=== PATIENT | male | born 1950 | race Caucasian/White ===

== ENCOUNTER → 2017-02-27 | Outpatient (CLI) | payer BC, MEDICARE ==
[~2017-02-27] MED LIST: ATORVASTATIN CA40 MG PO; COREG25 MG PO; DEXILANT30 MG PO; HYGROTON25 MG PO; IMODIUM2 MG PO; LASIX20 MG PO; NORVASC5 MG PO; PEPCID20 MG PO; ULORIC40 MG PO; ZESTRIL40 MG PO; ZOFRAN ODT4 MG SL
== END | disposition disaster alternative care site (69) ==
LOC: GRAD 08:30
DX: N18.9 Chronic kidney disease, unspecified (principal); I67.4 Hypertensive encephalopathy; I61.9 Nontraumatic intracerebral hemorrhage, unspecified; I71.4 Abdominal aortic aneurysm, without rupture; Z87.891 Personal history of nicotine dependence

== ENCOUNTER 2017-03-08 14:09 | Inpatient (IN) | payer BC, MEDICARE ==
[~2017-03-08] VITALS: Ht 175.3 cm; Wt 74.0 kg
--- NOTE | ~2017-03-08 | DS ---
PATIENT'S NAME: FRANKIE ROWELL [facility] AGE: 66 Y [address] ROOM: [place] [address] LOCATION: GI ADMIT DATE: 03/08/2017 Discharge Summary DISCHARGE DATE: 03/09/2017 FAMILY PHYSICIAN: Physician, Unknown ATTENDING PHYSICIAN: Becky Lovett PRINCIPAL DIAGNOSES: 1. Hypertensive emergency. 2. Nausea, vomiting, intractable. 3. History of hemorrhagic stroke. 4. Chronic kidney disease, stage 3. BRIEF HOSPITAL COURSE: This is a 66-year-old male who presented with xllumqtya-bp-kovsyms hypertension and recent hemorrhagic stroke who came in with complaints of generalized fatigue, dizziness, headache, nausea, vomiting, unable to take his medications for the past 2-3 days due to this. The patient on presentation had a blood pressure of 203/103 and was admitted for hypertensive emergency on a nitro drip to control his blood pressure. The patient's blood pressure quickly improved with the nitro drip and this was switched off overnight. The patient's blood pressure during his hospital stay maintained in the systolic of 120s. At this point, we will resume the patient's home medications and given him detailed instructions on when to take his medications and how to take the blood pressure and for symptoms to look for high or low blood pressure. The patient was also seen by Dr. Parr from Nephrology and is well-known to him and he will follow up as outpatient as well. PHYSICAL EXAMINATION: GENERAL: The patient is awake, alert, and oriented x3 in no apparent distress. HEART: S1, S2. Regular rate and rhythm. ABDOMEN: Soft, nontender, nondistended. EXTREMITIES: Without edema noted. NEUROLOGICAL: Exam with no focal deficits. MEDICATIONS: Per DEC. DISPOSITION: Home and will follow up with Dr. Parr from Nephrology. Less than 30 minutes were spent in discharge planning. BECKY LOVETT MD PATIENT'S NAME: FRANKIE ROWELL [facility] AGE: 66 Y [address] ROOM: [place] [address] LOCATION: GICU ADMIT DATE: 03/08/2017 Discharge Summary DISCHARGE DATE: 03/09/2017 FAMILY PHYSICIAN: Physician, Daija ATTENDING PHYSICIAN: Becky Lovett /[id number] d: 03/10/17 0313 t: 03/30/17 1525, DISCHARGE SUMMARY
--- NOTE | ~2017-03-08 | HP ---
PATIENT'S NAME: FRANKIE ROWELL [facility] AGE: 66 Y [address] ROOM: [place] [address] LOCATION: [facility] ADMIT DATE: 03/08/2017 History & Physical DISCHARGE DATE: FAMILY PHYSICIAN: PHYSICIAN, UNKNOWN ATTENDING PHYSICIAN: BECKY LEWIS DATE OF SERVICE: CHIEF COMPLAINT: Hypertensive emergency, nausea, vomiting. HISTORY OF PRESENT ILLNESS: This is a 66-year-old male with history of wlxekwpse-yf-tkkheqb hypertension and hemorrhagic stroke from hypertensive crisis a month ago, presents with two days' history of nausea, vomiting, and subsequently unable to take his blood pressure medications. The patient was found to have blood pressure of over 200/110 at presentation. The patient complains of some headache as well as persistent nausea and vomiting. Describes vomiting as bilious. The patient overall has not been able to keep p.o. intake well for the past 2+ days. The patient denies any diarrhea or any sick contact or recent antibiotic use. Describes some subjective fever. Otherwise, denies any chest pain, shortness of breath, dizziness, or lightheadedness. Also, denies abdominal pain. PAST MEDICAL HISTORY: Hemorrhagic stroke, hypertension. SOCIAL HISTORY: History of smoking, stopped in October. Denies any alcohol or drug use. FAMILY HISTORY: The patient denies any family history of hypertension, heart disease, cancer, or diabetes. REVIEW OF SYSTEMS: All systems have been reviewed and were negative except as described in the HPI. PHYSICAL EXAMINATION: VITAL SIGNS: Blood pressure 205/103, pulse 83, respiratory rate 19, saturating 99% on room air. GENERAL: The patient awake, alert, and oriented, however, lethargic. HEENT: Moist mucous membranes. No scleral icterus. Conjunctival pallor noted. SKIN: Without rash or lesions. CHEST: Clear to auscultation bilaterally. PATIENT'S NAME: FRANKIE ROWELL [facility] AGE: 66 Y [address] ROOM: [place] [address] LOCATION: [facility] ADMIT DATE: 03/08/2017 History & Physical DISCHARGE DATE: FAMILY PHYSICIAN: PHYSICIAN, UNKNOWN ATTENDING PHYSICIAN: BECKY LEWIS HEART: S1, S2. Regular rate and rhythm. ABDOMEN: Soft, nontender, nondistended with good bowel sounds. MUSCULOSKELETAL: No joint pain, effusion, or redness noted. NEUROLOGIC: Grossly nonfocal. ASSESSMENT AND PLAN: 1. Hypertensive emergency. Noting the patient does have a recent history of hemorrhagic stroke, we will admit him to PCU and we will use nitroglycerin drip to control blood pressure better. Blood pressure at presentation was 205/103. We will aim for a blood pressure of around systolic of 160 in the next 12 to 24 hours. We will use nitroglycerin drip and continue all of his home medications. 2. Nausea and vomiting, intractable. No alarming features on exam, however. We will continue supportive care and advance his diet as tolerated. CT scan of the head was negative. 3. History of hemorrhagic stroke. We will continue with managing his blood pressure as above. 4. Deep venous thrombosis prophylaxis. We will use SCDs and ambulation. MD CASSANDRA ADAME/milady /[id number] D: T: 522 HISTORY & PHYSICAL
--- NOTE | ~2017-03-08 | ER ---
PATIENT'S NAME: FRANKIE ROWELL [facility] AGE: 66 Y [address] ROOM: [place] [address] LOCATION: GICU ADMIT DATE: 03/08/2017 ER/Outpatient Report DISCHARGE DATE: FAMILY PHYSICIAN: PHYSICIAN, UNKNOWN ATTENDING PHYSICIAN: BECKY LOVETT Time of Arrival: 1409 hours. Time Seen: 1418 hours. IDENTIFICATION: 66-year-old male. CHIEF COMPLAINT: Vomiting. HISTORY OF PRESENT ILLNESS: The patient is a 66-year-old male who began vomiting 7 hours prior to arrival at 6 a.m. this morning. He has some epigastric abdominal discomfort as well. His pertinent past medical history is such that he was admitted to the hospital in [place] on February 12 with a hemorrhagic stroke, released on February 20, no residual from that. He has had some acute kidney injury and has been seeing Dr. Parr, and some hypertension that has been difficult to control. The patient has no ill contacts, here with this recent vomiting. He has had no diarrhea. He has been on some prednisone, but they held that on Thursday, that was for tendinitis of his elbow. No blood in his stools. No dark, tarry, or black stools. PAST MEDICAL HISTORY: ALLERGIES: NO KNOWN DRUG ALLERGIES. CURRENT MEDICATIONS: 1. Lisinopril 40 mg daily. 2. Dexilant 60 mg daily. 3. Lasix 40 mg daily. 4. Carvedilol 25 mg b.i.d. 5. Atorvastatin 40 mg at h.s. 6. Uloric 40 mg daily. 7. Amlodipine 10 mg at bedtime. MEDICAL PROBLEMS: Hypertension, hemorrhagic CVA, acute kidney injury, gastroesophageal reflux disease, hyperlipidemia, and hyperuricemia. PATIENT'S NAME: FRANKIE ROWELL [facility] AGE: 66 Y [address] ROOM: [place] [address] LOCATION: [facility] ADMIT DATE: 03/08/2017 ER/Outpatient Report DISCHARGE DATE: FAMILY PHYSICIAN: PHYSICIAN, UNKNOWN ATTENDING PHYSICIAN: BECKY LOVETT PRIOR SURGERIES: Appendectomy, tonsillectomy, and hernia repair. SOCIAL HISTORY: The patient lives in [place]. Works as a sanitation truck driver. He does have a significant other. Tobacco use, he has smoked in the past, quit in October of 2015, 50+ pack year history. Alcohol use, denies. Drug use, denies. REVIEW OF SYSTEMS: All systems reviewed and negative other than what is noted in the HPI. FAMILY HISTORY: No pertinent family history identified. REVIEW OF SYSTEMS: the patient has had him hiccups with this. The patient specifically denies headache. No numbness, tingling, or weakness. He denies chest pain. PHYSICAL EXAMINATION: VITAL SIGNS: Height 5 feet 9 inches, weight 82.9 kg, blood pressure 205/103, temperature 97.6, pulse 83, respirations 19, and saturations 99%. GENERAL: A 66-year-old male, in obvious distress. HEENT: Head: Normocephalic, atraumatic. Ears: TMs not visualized. Eyes: Pupils equal and reactive to light and accommodation. Extraocular movements intact. Nose: Mucosa pink. No lesions. Mouth: No lesions. Pharynx benign. NECK: Supple. No lymphadenopathy. No nuchal rigidity. LUNGS: Clear to auscultation. Breath sounds are equal. No rhonchi, wheezes, or rales. HEART: Regular rate and rhythm. No murmur, rub, or gallop. ABDOMEN: Bowel sounds present. Soft, nondistended. No hepatosplenomegaly. No palpable masses. Some mild epigastric tenderness. No rebound or guarding. SKIN: [place], warm, and dry. No lesions or rashes noted. NEURO: The patient is alert and oriented x4. Cranial nerves 2 through 12 grossly intact. Motor strength 5/5 throughout. Sensation is intact to light touch. EXTREMITIES: No lower extremity edema. No calf tenderness. EMERGENCY ROOM COURSE: An IV normal saline at 75 mL/h was initiated. Zofran 4 mg IV for nausea. Hemoglobin 15.9, hematocrit 45.6, platelets 351, and white count 10.3 with normal differential. INR 1.06. Sodium 136, potassium 3.9, chloride 100, CO2 of 22, BUN 46, creatinine elevated at 2.0 which is significant. Other studies are stable for him. Blood sugar 151. Liver enzymes normal. Magnesium 2. CPK 69, CK-MB 0.8, and troponin I less than 0.040. Chest x-ray, 1 view, no [facility] 66 [facility] [address] ROOM: [address] [address] LOCATION: [facility] ADMIT DATE: 03/08/2017 ER/Outpatient Report DISCHARGE DATE: FAMILY PHYSICIAN: PHYSICIAN, UNKNOWN ATTENDING PHYSICIAN: BECKY LOVETT acute process, pending Radiology over-read. EKG: Normal sinus rhythm at 78 beats per minute. No acute ST elevation or depression. Head CT per Dr. Wang: Ill-defined low attenuation involving lam and white matter of the posterior right parietooccipital region measuring up to 3.7 cm. This is in the area where his significant other says is prior hemorrhagic stroke was. UA: Trace of protein, otherwise negative. The patient was given Zofran for nausea, fentanyl for pain. No improvement of his blood pressure. His GI cocktail helped with his epigastric discomfort. The patient has continued to have hiccups. He was given his oral dose of lisinopril 40 mg after his nausea improved, labetalol 10 mg IV over 2 minutes with minimal improvement in his blood pressure, amlodipine 10 mg p.o. x1. Again, persistent elevation of his blood pressure, so then he was given another dose of IV labetalol. IMPRESSION AND PLAN: 1. Hypertensive emergency. Plan for admission per Dr. Lovett who did evaluate him here in the emergency room. 2. Epigastric pain, improved. 3. Prior hemorrhagic cerebrovascular accident with ill-defined area on the head CT today. LATOYA LEWIS MD CAR/modl /[id number] d: 03/08/172236 t: 03/11/17 0642, OUTPATIENT REPORT
--- NOTE | ~2017-03-08 | CON ---
PATIENT'S NAME: FRANKIE ROWELL [facility] AGE: 66 Y [address] ROOM: [address] [place], [place] [address] LOCATION: GICU ADMIT DATE: 03/08/2017 Consultation DISCHARGE DATE: 03/09/2017 FAMILY PHYSICIAN: Physician, Unknown ATTENDING PHYSICIAN: Mike Lovett HISTORY OF PRESENT ILLNESS: A 66-year-old male with a history of recently diagnosed hypertension, CKD, stage 3, after development of hemorrhagic CVA and recent admission in [facility] in [place] presented to [facility] with intractable nausea, vomiting, and poor oral intake along with hypertensive urgency. The patient was seen in my clinic and also by Dr. Paige at [facility] over the last few weeks. As explained above, the patient has had no significant past medical history in the past, but noted to develop an intraparenchymal hemorrhage for which the patient went into respiratory failure, got intubated, and had a prolonged hospital course at [place], [place]; following which, he is noted to have difficult to control hypertension and significant renal insufficiency. However, we were able to control the blood pressure adequately with 3-4 blood pressure pills and the patient was doing significantly well with significant improvement of kidney function over the last few weeks, but more recently, the patient had developed some bursitis over the right olecranon process and the patient was started on steroids for that. Following initiation of the steroids, the patient was complaining of significant upper epigastric discomfort after which he had intractable nausea with inability to keep anything down. The patient was not taking oral antihypertensive medication because of significant nausea and came to Dr. Paige's clinic on Thursday with significantly elevated blood pressure and poor oral intake. The patient got a liter of normal saline bolus at that time, got also Zofran and some IV antacid suppression medication following which the patient's symptoms were improved significantly; however, within next couple of days, the patient again showed up in the ER with similar complaint with blood pressure in more than 200. The patient was subsequently started on nitroglycerin IV infusion and blood pressure today is well-controlled. The home blood pressure medication was on hold while the patient was on IV antibiotics medication and currently we are going back on home antihypertensive regimen. REVIEW OF SYSTEMS: GENERAL: No fever. No chills or rigor. HEENT: No sore throat. No sinus congestion. CVS: No chest pain. No exertional shortness of breath. No leg swelling. RESPIRATORY: No shortness of breath. No cough. No wheezing. GENITOURINARY: No pain with urination. No increased frequency. No nocturia. GASTROINTESTINAL: No abdominal pain. No abdominal distention. No nausea or vomiting. NEUROLOGIC: No weakness. No seizures. SKIN: No rash. No itching. ALLERGIES: No seasonal allergy. No hayfever. ENDOCRINE: No heat intolerance. No cold intolerance. PSYCHIATRIC: No sadness. No crying spells. No history of panic attack. PAST MEDICAL HISTORY: 1. Newly diagnosed hypertension. 2. Chronic kidney disease, stage 3. 3. History of acute hypoxic respiratory failure. 4. Acute encephalopathy. 5. History of urinary tract infection.PATIENT'S NAME: FRANKIE ROWELL [facility] AGE: 66 Y [address] ROOM: [place] [address] LOCATION: [facility] ADMIT DATE: 03/08/2017 Consultation DISCHARGE DATE: 03/09/2017 FAMILY PHYSICIAN: Physician, Unknown ATTENDING PHYSICIAN: Mike Lovett PAST SURGICAL HISTORY: 1. History of appendectomy. 2. History of hernia repair. 3. Tonsillectomy with adenoidectomy. FAMILY HISTORY: Father had a history of pneumonia. SOCIAL HISTORY: Former heavy tobacco smoker and about 42-[id number]-yfzv history of smoking. Occasional alcohol use. Single, . PHYSICAL EXAMINATION: VITAL SIGNS: Blood pressure 106/55, pulse 66, respiratory rate 18, temperature 98.1, and saturation 96% to 98% on room air. GENERAL: Not in apparent distress. HEAD: Moist mucous membranes. Bilateral PERRLA, EOMI. NECK: No JVD, thyromegaly or lymphadenopathy. CVS: S1 and S2 normal, regular rate and rhythm. No murmur, rub, gallop. CHEST: Bilateral air entry equal. No wheeze or rales. ABDOMEN: Soft, nontender, nondistended. Bowel sounds present. EXTREMITIES: No cyanosis, clubbing, jaundice. No dependent edema. MUSCULOSKELETAL: No limitation of range of motion. SKIN: No pallor, cyanosis, icterus. MOTOR ROOM CONTROLLER: Alert and oriented x3. No gross findings. LABORATORY STUDIES: Troponin less than 0.040, CPK 69. CBC: Hemoglobin 15.9, WBC 10.3, and platelet 351. Chemistry: Sodium 136, potassium 3.9, chloride 100, bicarbonate 22, BUN 46, creatinine 2, glucose 151, calcium 9.1, total protein 7.6, albumin 3.7, AST 15, ALT 26, alk phos 70, total bilirubin 0.7, magnesium 2. INR 1.6. UA specific gravity 1.005, pH 7, negative for LE, negative for nitrate, 1+ proteinuria, 1+ glucose, negative ketone, negative urobilinogen, 0- 2 wbc, 5-10 rbc, 1+ blood, few bacteria. Urine protein creatinine ratio 0.1. ASSESSMENT AND PLAN: 1. Hypertensive urgency with recent history of hypertensive encephalopathy with intraparenchymal hemorrhage. The patient's blood pressure was adequately controlled on four antihypertensive medication, but for the last few days, the patient was not able to keep anything down with significant nausea and vomiting. Steroid has been discontinued, but still has significant nausea. We would recommend intravenous proton pump inhibitor and intravenous Zofran for now and maybe discharge the patient on a proton pump inhibitor and Zofran for symptom control. The patient also has been explained about the need to control the blood pressure in the strict zone as significant fluctuation of the blood pressure can impact the kidney function as well. 2. Chronic kidney disease, stage 3. Renal function is within the normal range. Creatinine is currently 2, which is probably his baseline. Protein creatinine ratio is 0.1, has history of mild hypertensive nephrosclerosis, we will continue current antihypertensive medication including GURWINDER inhibitor, which will also help in renal protection. PATIENT'S NAME: FRANKIE ROWELL [facility] AGE: 66 Y [address] ROOM: [place] [address] LOCATION: [facility] ADMIT DATE: 03/08/2017 Consultation DISCHARGE DATE: 03/09/2017 FAMILY PHYSICIAN: Physician, Unknown ATTENDING PHYSICIAN: Mike Lovett 3. Significant gastritis, possibly secondary to a side effect of steroid, which was initiated for uremic bursitis, currently is off steroid, we will recommend proton pump inhibitor and Zofran as mentioned above, and the patient can be discharged on those 2 medications for symptom control. 4. Hyperuricemia with possible uremic bursitis. The patient currently on Uloric. We will continue the same. The patient do not need any systemic steroids at this point. We may use intralesional steroid injection if symptoms recurs in the future. Thank you for allowing me to participate in this patient's care. We will closely monitor the patient's progress along with you. OLY JOLLY MD /modl /[id number] d: 03/09/17 2349 t: 03/19/17 1614, CONSULTATION REPORT
[2017-03-08 14:55] LABS: BASOPHIL % 0.2 %; EOSINOPHIL % 0.1 %; HEMATOCRIT 45.6 % (37.0-53.0); HEMOGLOBIN 15.9 g/dL (11.0-16.0); IMMATURE GRANULOCYTE # 0.1 K/uL (0.0-0.3); IMMATURE GRANULOCYTE % 0.7 %; LYMPHOCYTE # 1.4 K/uL (0.8-4.0); LYMPHOCYTE % 13.2 %; MCH 30.1 pg (27.0-34.0); MCHC 34.9 gm/dL (32.0-36.5); MCV 86.2 fl (83.0-98.0); MONOCYTE # 0.8 K/uL (0.0-1.0); MONOCYTE % 7.6 %; MPV 9.6 fl (9.4-12.4); NEUTROPHIL # (ANC) 8.1 K/uL (1.4-9.0); NEUTROPHIL % 78.2 %; NRBC % 0 /100WBC (0-0.00); PLATELET COUNT 351 K/uL (150-450); RBC 5.29 M/uL (3.50-5.50); RDW-CV 11.8 % (11.9-14.6); WBC 10.3 K/uL (4.0-11.0)
[2017-03-08 15:03] LABS: INR - (THERAPEUTIC) 1.06 (0.92-1.07); PROTIME 11.1 SECONDS (9.8-11.4); PTT 26 SECONDS (25-32)
[2017-03-08 15:13] LABS: ALBUMIN 3.7 gm/dL (3.5-5.0); ALK PHOS 70 IU/L (33-138); ALT 26 IU/L (12-78); ANION GAP 17.9 (10.0-19.0); AST 15 IU/L (10-40); BLOOD UREA NITROGEN 46 mg/dL (6-24); CALCIUM 9.1 mg/dL (8.5-10.5); CHLORIDE 100 mMol/L (96-110); CO2 22 mMol/L (22-32); CPK 69 IU/L (35-332); ESTIMATED GFR (MDRD EQUATION) 33; POTASSIUM 3.9 mMol/L (3.7-5.1); SODIUM 136 mMol/L (135-145); TOTAL BILIRUBIN 0.7 mg/dL (0.0-1.5); TOTAL PROTEIN 7.6 g/dL (6.0-8.4)
[2017-03-08 16:47] LABS: BILIRUBIN URINE NEGATIVE (NEGATIVE); BLOOD URINE 25 /UL (NEGATIVE); COLOR URINE YELLOW (YELLOW); GLUCOSE URINE 100 mg/dL (NEGATIVE); KETONE URINE NEGATIVE (NEGATIVE); LEUKOCYTES URINE NEGATIVE /UL (NEGATIVE); NITRITE URINE NEGATIVE (NEGATIVE); PROTEIN URINE 30 mg/dL (NEGATIVE); SPEC GRAVITY URINE 1.005 (1.003-1.035); TURBIDITY URINE CLEAR (CLEAR); UROBILINOGEN URINE NORMAL (NORMAL)
[2017-03-08 17:00] LABS: BACTERIA URINE FEW (NEGATIVE); EPITHELIAL URINE 0-2 #/HPF (NEGATIVE); WBC URINE 0-2 #/HPF (NEGATIVE)
--- NOTE | 2017-03-08 20:00 | NUR ---
Patient has not been feeling well since . Nausea and vomiting night, to clinic thursday and recieved fluids, sent home. Anderson ok on Thursday until evening. Woke up Thursday morning vomiting and unable to keep medications down. To [facility] ER, pressures 200/100s. Nitro drip started in ER. Admitted as PCU status.
[2017-03-08] MEDS ORDERED: ZESTRIL40 MG PO (20:07)
[2017-03-08] MEDS ORDERED: LASIX20 MG PO (20:08)
[2017-03-08] MEDS ORDERED: NORVASC5 MG PO (20:08)
[2017-03-08] MEDS ORDERED: ULORIC40 MG PO (20:09)
[2017-03-08] MEDS ORDERED: COREG25 MG PO (20:09)
[2017-03-08] MEDS ORDERED: ATORVASTATIN CA40 MG PO (20:10)
[2017-03-08] MEDS ORDERED: DEXILANT30 MG PO (20:11)
--- NOTE | 2017-03-09 05:00 | NUR ---
Significant Event: Patient alert and oriented. Up with standby assist. No nausea or vomiting since arrival to ICU. Denies pain. Nitro drip off at 2100. SBP 120-140/60-70s. Heart rates 60-70s. Pleasant and cooperative with cares. Follow up: continue to monitor
--- NOTE | 2017-03-09 11:01 | NUR ---
Introduced self and care management services to patient and girlfriend at bedside. Lives in [place], feels much better and hoping to go home today. Independent, denies concerns about going home on discharge, denies needs. Will follow.
[2017-03-09] MEDS ORDERED: ZOFRAN ODT4 MG SL (15:40)
[2017-06-24] MEDS ORDERED: PEPCID20 MG PO (08:14)
[2017-06-24] MEDS ORDERED: IMODIUM2 MG PO (08:16)
== END 2017-03-09 16:18 | disposition disaster alternative care site (69) | DRG 305 ==
LOC: GMED 14:09 → GICU 19:05
PROVIDERS: Family Medicine; ADMIT Internal Medicine
DX: I16.1 Hypertensive emergency (principal); N17.9 Acute kidney failure, unspecified; K21.9 Gastro-esophageal reflux disease without esophagitis; E78.5 Hyperlipidemia, unspecified; T38.0X5A Adverse effect of glucocorticoids and synthetic analogues, initial encounter; K29.70 Gastritis, unspecified, without bleeding; E79.0 Hyperuricemia without signs of inflammatory arthritis and tophaceous disease; R10.13 Epigastric pain; N18.3 Chronic kidney disease, stage 3 (moderate); I12.9 Hypertensive chronic kidney disease with stage 1 through stage 4 chronic kidney disease, or unspecified chronic kidney disease; M71.9 Bursopathy, unspecified; Z86.73 Personal history of transient ischemic attack (TIA), and cerebral infarction without residual deficits; Z87.891 Personal history of nicotine dependence
CPT/HCPCS: J2405; J3010; J7030

== ENCOUNTER 2017-03-30 21:10 | Inpatient (IN) | payer BC, MEDICARE ==
[~2017-03-30] VITALS: Ht 180.3 cm; Wt 85.5 kg
--- NOTE | ~2017-03-30 | HP ---
PATIENT'S NAME: FRANKIE ROWELL [facility] AGE: 66 Y [address] ROOM: [id number] [place], [place] [address] LOCATION: GPCU ADMIT DATE: 03/30/2017 History & Physical DISCHARGE DATE: FAMILY PHYSICIAN: EFRAÍN RANDALL MD ATTENDING PHYSICIAN: MARY LUNA DATE OF SERVICE: CHIEF COMPLAINT: Infraumbilical abdominal pain associated with nausea, vomiting, and loose stools. HISTORY OF PRESENT ILLNESS: This is a 66-year-old male who says that he was recently taking prednisone for his right elbow bursitis and made him feel very sick to the stomach causing nausea and vomiting and some epigastric pain. Prednisone was recently discontinued. He was on prednisone on March 04, 2017, to March 05, 2017, and on March 06, 2017, it was stopped because of the GI upset. The story is that roughly 2 weeks ago, he had epigastric pain with radiation to the back, lasted for 3 days, intensity about 4/10, come and go, feels like a crampy type of pain and he took Tylenol and the pain totally went away after 3 days. However, for the last 5 days, his abdominal pain recurred, but at this time the abdominal pain is in the infraumbilical area and about 4/10 in intensity on and off, also felt like a crampy pain, but does not radiate to the back but is associated with nausea and vomiting about 3-5 times per day. For the next few days, his symptoms improved, but since yesterday (Thursday), his nausea, vomiting, and infraumbilical abdominal pain came back and got worse. That is why, the patient came in here for evaluation of the nausea, vomiting, and the infraumbilical pain. He also says that he has been having loose stool for the last 3 days about 3 episodes per day without any blood. He also states that he has been having poor appetite because of the nausea, vomiting, and he has not eaten much in the last few days and also has noticed a decrease in urine output and his urine also looked more concentrated. Yesterday, he was walking at home and he feels very lightheaded and he had presyncope, but he did not have any syncope. No fall and no head trauma. The patient is not an alcoholic, his last drink was roughly 4 months ago. The patient was never told he had a gallstone in the past. He has also been having some hiccups since today. REVIEW OF SYSTEMS: As mentioned in the history of present illness. All other systems were reviewed and were negative except those mentioned in the history of present illness. PAST MEDICAL HISTORY: 1. Hypertension. PATIENT'S NAME: FRANKIE ROWELL [facility] AGE: 66 Y [address] ROOM: [id number] [place] [id number] [facility] ADMIT DATE: 03/30/2017 History & Physical DISCHARGE DATE: FAMILY PHYSICIAN: EFRAÍN RANDALL MD ATTENDING PHYSICIAN: MARY LUNA 2. CKD stage 3. 3. History of a hemorrhagic stroke in the past without neurological deficit. ALLERGIES: PREDNISONE, WHICH CAUSES GI UPSET AND NAUSEA AND VOMITING. HOME MEDICATIONS: 1. Lasix 20 mg p.o. daily. 2. Uloric 40 mg p.o. daily. 3. Lipitor 40 mg p.o. daily. 4. Coreg 25 mg p.o. b.i.d. 5. Amlodipine 10 mg p.o. daily. 6. Zofran 4 mg p.o. q.6 hours p.r.n. for nausea or vomiting. 7. Lisinopril 40 mg p.o. daily. SOCIAL HISTORY: The patient was a former cigarette smoker. He quit in October 2016 and he used to smoke about 1-1/2 packs per day for the last 50 years. He is a very social alcohol drinker. He was never an alcoholic and his last drink was roughly 4 months ago. He denies any illegal drug use. FAMILY HISTORY: Father had a heart problem, but details are not clear. The patient does not know much about the past medical problem of his father. His mother from complication from emphysema at old age. PAST SURGICAL HISTORY: 1. Status post appendectomy. 2. Status post hernia repair in the past. 3. Status post tonsillectomy and adenoidectomy in the past. PHYSICAL EXAMINATION: VITAL SIGNS: At the time of my dictation, temperature 98, respirations 16, blood pressure 131/77, heart rate 94, saturation 94% on room air. GENERAL APPEARANCE: Alert and oriented x3, in no acute distress. HEENT: Pupils are equally round and reactive to light. Extraocular muscles are intact. Nasal turbinates are normal bilaterally. Anicteric sclerae. Dry oral mucosa. NECK: No JVD. CARDIOVASCULAR: Regular rate and rhythm. Normal S1, S2. No murmur, no rubs, no gallops. RESPIRATORY: Clear to auscultation. No rales, no rhonchi, no crackles, no wheezing. However, he does have decreased breath sounds diffusely. ABDOMEN: Soft, nontender, nondistended, normal bowel sounds. No hepatomegaly. Bowel sounds are present. No mass. PATIENT'S NAME: FRANKIE ROWELL [facility] AGE: 66 Y [address] ROOM: [address] [address] LOC[facility]: [facility] ADMIT DATE: 03/30/2017 History & Physical DISCHARGE DATE: FAMILY PHYSICIAN: EFRAÍN RANDALL MD ATTENDING PHYSICIAN: MARY LUNA EXTREMITIES: No edema in upper or lower extremities. NEUROLOGICAL: Grossly nonfocal. SKIN: No ulcer, no rash, no cyanosis. MUSCULOSKELETAL: No joint pain and no muscle pain. Range of motion intact. LABORATORY DATA: Lactic acid 1.4. Troponin less than 0.04. White blood cells 9.2, hemoglobin 13.5, hematocrit 39, platelets 419, glucose 115, BUN 62, creatinine 4.1. Sodium 132, potassium 4.1, chloride 96, CO2 26, calcium 9.0. Total protein 7.1, albumin 3.4, AST 32, ALT 31, alkaline phosphatase 71, total bilirubin 0.5, anion gap 14.1, GFR 15. ESR 37, INR 1.05, PTT 28. Lipase 1916, amylase 149, CRP 1.08, GGT 33. IMAGING STUDIES: KUB was performed on the day of admission in the ED. The official report is pending. Please follow up with official report in the morning. CT of abdomen and pelvis without contrast performed in the ED on admission, the preliminary report was read as no acute findings. Please follow up with the official report in the morning. EMERGENCY ROOM COURSE: In the emergency room, the patient received 1 L of normal saline. ASSESSMENT AND PLAN: 1. Regarding his lipase elevation: Please follow up with official report of the CT of the abdomen and pelvis in the morning to see if there is any inflammation in the pancreas. The causes of the lipase elevation could be multifactorial in this patient, the first one could be from the drug induced. Based on up-to-date, I reviewed and the home medications that he takes right now that can cause lipase elevation include Lasix, Uloric, Lipitor, and lisinopril. Therefore, I will be holding all these medications for now. The other causes of the lipase elevation could be from renal failure, which the patient currently has acute kidney injury on chronic kidney disease. The patient was also on prednisone last month that can also cause lipase elvation, but less likely given that he stopped the prednisone already since March 06, 2017. The plan will be follow up with official report of the CT of abdomen and pelvis to see if there is any pancreatic inflammation and I will also get a complete abdominal ultrasound to look for the biliary tree to see if there is any cholelithiasis or choledocholithiasis and also look at acute kidney injury on chronic kidney disease for the kidneys morphology and to see if there is any hydronephrosis to rule out any postobstructive causes of the acute kidney injury on chronic kidney disease. N.p.o. IV fluids and pain control with IV morphine p.r.n. Currently, the patient does not PATIENT'S NAME: FRANKIE ROWELL [facility] AGE: 66 Y [address] ROOM: [address] [address] LOC[facility]: [facility] ADMIT DATE: 03/30/2017 History & Physical DISCHARGE DATE: FAMILY PHYSICIAN: EFRAÍN RANDALL MD ATTENDING PHYSICIAN: MARY LUNA have any pain at all. 2. Regarding his hypertension: Due to his history of hemorrhagic stroke in the past, I will check his vital signs every hour for now until the morning and use IV hydralazine and IV labetalol p.r.n. as necessary to keep the systolic blood pressure less than 140. Continue the home medications. I will only continue Coreg for now and I will also continue the amlodipine as well. I will hold lisinopril and the Lasix in the setting of acute kidney injury on chronic kidney disease and also due to lipase elevation. 3. Regarding his acute kidney injury on chronic kidney disease stage 3: I will put a Kathleen to rule out any postobstructive causes and also for strict in's and out's. Complete abdominal ultrasound in the morning. The patient states that he has an appointment with the partnership marketing manager, Dr. Parr tomorrow for followup. Therefore, I will consult Nephrology while the patient is in the hospital. I will check a urine and electrolytes with urine creatinine and urine urea given that the patient was on Lasix at home. IV fluids for hydration. Renal panel in the morning again. 4. Regarding his hiccups: Will do po chlorpromazine 50mg qid prn. 5. Regarding his loose stools: Check for c. diff. 6. Regarding his nausea and vomiting: Zofran iv prn. 4. Regarding his deep vein thrombosis prophylaxis: I will do heparin subcu 5000 units 3 times a day and compression devices. 5. CODE STATUS: He is DO NOT RESUSCITATE/DO NOT INTUBATE. Total time spent in care on the day of admission 45 minutes. More than half of the time was spent on counseling, including going over the plan of care with the patient and the patient's fiancee at the bedside. I also answered all their questions and their concerns, and I also went over the plan of care in detail with the patient and the patient's fiancee at the bedside. I counseled them about the possible causes of the lipase elevation and that we should wait for the final report of the CT abdomen and pelvis in the morning to look for any findings of pancreatic inflammation. I also told him about the importance of getting an abdominal ultrasound looking for the kidneys and also for any biliary tree pathology. I also told them that if necessary, GI and General Surgery will be involved depending on his clinical course. The remaining of the total time spent was in chart review, physical examination, and interview. Further plan depends on clinical course. I answered all their questions to their satisfaction. I also went over the plan of care with the nurse as well. In addition, I will get a urinalysis as well in the setting of infraumbilical abdominal pain and acute kidney injury on chronic kidney disease. MARY LUNA MD PATIENT'S NAME: FRANKIE ROWELL [facility] AGE: 66 Y [address] ROOM: [place] [address] LOCATION: [facility] ADMIT DATE: 03/30/2017 History & Physical DISCHARGE DATE: FAMILY PHYSICIAN: EFRAÍN RANDALL MD ATTENDING PHYSICIAN: MARY LUNA/milady /[id number] D: [id number] T: [id number] HISTORY & PHYSICAL
--- NOTE | ~2017-03-30 | CON ---
PATIENT'S NAME: FRANKIE ROWELL [facility] AGE: 66 Y [address] ROOM: [id number] [place], [place] [address] LOCATION: GPCU ADMIT DATE: 03/30/2017 Consultation DISCHARGE DATE: FAMILY PHYSICIAN: EFRAÍN RANDALL MD ATTENDING PHYSICIAN: EDUARDO LUNA DATE OF CONSULTATION: 03/31/2017 REFERRING PHYSICIAN: OLY JOLLY REFERRING PHYSICIAN: Eduardo Luna MD REASON FOR CONSULTATION: MATTHEW on CKD. HISTORY OF PRESENT ILLNESS: A 66-year-old male with a history of recently diagnosed hypertension; CKD, stage 3; and recent admission at [facility] with hemorrhagic CVA and hypertensive urgency, presented with intractable nausea, vomiting, poor oral intake, and upper abdominal/epigastric pain. The patient was also found to have elevated creatinine from his baseline. His creatinine baseline is 2 and now is 4.1 on admission. Nephrology consultation has been called for above-mentioned reason. The patient was seen in my clinic and by Dr. Randall at [facility] in the clinic over the last few months, and we have tried to readjust his antihypertensive medication because the patient was noted to have significantly uncontrolled hypertension since he was diagnosed with hypertensive urgency at [facility]. We have started the patient on lisinopril and Lasix, and for his hyperuricemia, on Uloric. Since then, this is the third episode of intractable nausea and vomiting with upper epigastric discomfort. On presentation, amylase and lipase were found to be high; however, CT scan without contrast did not show any inflammatory changes, especially around the mesentery or in the pancreas. The patient's blood pressure was also noted to be high as the patient was unable to tolerate anything orally and was not taking his regular antihypertensive medications. The patient's ultrasound was negative for any gallstones in the past and denied any significant alcohol abuse. Denied any chest pain, shortness of breath, orthopnea, or PND. Volume status appears to be euvolemic. No urinary symptoms including dysuria, urgency, hesitancy, or nocturia. No fever, chills, or rigor. During my evaluation, the patient still has mild epigastric discomfort, but abdomen appears to be soft. No guarding or rigidity. REVIEW OF SYSTEMS: GENERAL: Denies fatigue, fever, chills, sweats, rash, or weight loss. EYES: Denies double vision, blurred vision, cataracts, or glaucoma. ENT: Denies hearing loss or problems with nose, mouth, or throat. PULMONARY: Denies cough, sputum production, asthma, emphysema, or bronchitis. Denies snoring loudly, wakefulness at night, or fatigue upon awakening. GASTROINTESTINAL: Epigastric pain as explained above. No significant abdominal distention. Significant nausea and vomiting as explained in HPI. GENITOURINARY: Denies dysuria, hematuria, nocturia, urinary tract infection, or kidney stones. Denies history of renal insufficiency or failure. MUSCULOSKELETAL: Denies history of arthritis or gout. Denies muscle or joint pains. ENDOCRINE: Denies history of thyroid dysfunction or diabetes. HEMATOLOGIC: Denies history of anemia, easy bruising, or cancer. NEUROLOGIC: Denies chronic headaches, dizziness, syncope, stroke, seizures, numbness, or tingling. PSYCHIATRIC: Denies history of mental illness or feelings of depression condition.PATIENT'S NAME: FRANKIE ROWELL [facility] AGE: 66 Y [address] ROOM: [id number] [place], [place] [address] [facility] ADMIT DATE: 03/30/2017 Consultation DISCHARGE DATE: FAMILY PHYSICIAN: EFRAÍN RANDALL MD ATTENDING PHYSICIAN: EDUARDO LUNA PAST MEDICAL HISTORY: 1. Newly diagnosed hypertension. 2. CKD, stage 3. Baseline creatinine around 2. 3. History of acute hypoxic respiratory failure. 4. Acute encephalopathy. 5. History of urinary tract infection. PAST SURGICAL HISTORY: 1. History of appendectomy. 2. History of hernia repair. 3. History of tonsillectomy and adenoidectomy. FAMILY HISTORY: Apparently, history of pneumonia. No history of CKD in the family. SOCIAL HISTORY: Former heavy tobacco smoker, [id number] history of smoking. Occasional alcohol abuse. Single. . PHYSICAL EXAMINATION: VITAL SIGNS: Blood pressure 150s over 70s, pulse 69, respiratory rate 18, temperature 97.1, and saturation 94% to 96% on room air. GENERAL: Not in apparent distress. HEAD: Moist mucous membranes. Bilateral PERRLA, EOMI. NECK: No JVD, thyromegaly, or lymphadenopathy. CARDIOVASCULAR: S1 and S2 normal. Regular rate and rhythm. No murmur, rub, or gallop. CHEST: Bilateral air entry equal. No wheeze or rales. ABDOMEN: Soft. Mild epigastric tenderness. Nondistended. Bowel sounds present. EXTREMITIES: No cyanosis, clubbing, or jaundice. No dependent edema. MUSCULOSKELETAL: No limitation of range of motion. SKIN: No pallor, cyanosis, or icterus. CENTRAL NERVOUS SYSTEM: Alert and oriented x3. No gross findings. LABORATORY DATA: Lactate 1.4. Ammonia 19. Troponin less than 0.040. CBC: Hemoglobin 11.8, WBC 7.2, and platelets 327. Chemistry: Sodium 141, potassium 4.2, chloride 106, bicarbonate 27, BUN 51, creatinine 3.2, glucose 85, and calcium 8. Albumin 7.1 and 3.4. ESR 37. Cholesterol 126, triglycerides 121, HDL 33, and VLDL 36. INR 1.05. UA: Specific gravity 1.010, pH of 6.5, and 2+ glucose. Otherwise, negative. Amylase 149 and dropped down to 59. Lipases 1916, dropped down 201. Alcohol negative. CRP 1.08. GGT 33. Intake and output since admission 1170 in and 1300 out, net negative 130 mL.PATIENT'S NAME: FRANKIE ROWELL [facility] AGE: 66 Y [address] ROOM: [address] [address] [facility] ADMIT DATE: 03/30/2017 Consultation DISCHARGE DATE: FAMILY PHYSICIAN: EFRAÍN RANDALL MD ATTENDING PHYSICIAN: EDUARDO LUNA ASSESSMENT AND PLAN: 1. Acute kidney injury on chronic kidney disease, possibly prerenal, with poor oral intake versus acute tubular necrosis, with hemodynamic insult. The patient has good urine output. Creatinine at baseline was 2, went up to 4.1 on admission, currently coming down. Good urine output. We will continue aggressive fluid hydration, NS at 100 mL/hour. We will check urinalysis and urine lytes including sodium, potassium, creatinine osmolality. We may also do renal ultrasound to rule out any obstructive process, although very unlikely. We will hold off from antihypertensive medication to keep the systolic blood pressure between 140 to 150, and we will avoid diuretic at this point. Avoid any other nephrotoxic exposure including nonsteroidal antiinflammatory drugs and contrast media. Maintain MAP more than 65. The patient has been encouraged to consume a low-salt DASH diet. 2. Pancreatitis. No history of gallstones and alcohol abuse. Possibly drug related. Review of his whole medication list shows that there are 2 possible drugs which can precipitate pancreatitis, number one is Lasix, followed by lisinopril. We will hold both the medications, and we will start the patient on amlodipine. We will increase the Coreg and hydralazine p.o. Our goal systolic blood pressure will be between 130 to 150 at this point. We will slowly reintroduce lisinopril at a later date to see whether he can tolerate. Regarding Lasix, either we can go for desensitization, or we may try Ethacrynic Acid, but the main limiting factor would be the cost. CT scan did not show any significant inflammatory changes, and lipase is slowly coming down, so we do believe the pancreatic inflammation is coming down. The patient will be able to tolerate orally within next 12 to 24 hours. We would recommend getting an abdominal ultrasound which will also take care of the renal ultrasound part. 3. Hypertension. Switching of the antihypertensive medication as mentioned above. Goal systolic blood pressure for patient will be between 130 to 150. Avoid significant hypotensive episodes. 4. Nausea and vomiting, possibly secondary to pancreatitis. May use Zofran p.r.n. Thank you for allowing me to participate in this patient's care. I will follow up the patient's progress along with you. HISEKH AIYANA JOLLY MD /modl /[id number] d: 03/31/171850 t: 04/02/171812, CONSULTATION REPORT
--- NOTE | ~2017-03-30 | DS ---
PATIENT'S NAME: FRANKIE ROWELL [facility] AGE: 66 Y [address] ROOM: [address] [place], [place] [address] LOCATION: GPCU ADMIT DATE: 03/30/2017 Discharge Summary DISCHARGE DATE: 04/02/2017 FAMILY PHYSICIAN: Cresencio Paige MD ATTENDING PHYSICIAN: Eduardo Muller PRINCIPAL DIAGNOSES: 1. Likely drug-induced pancreatitis. 2. Acute kidney injury on chronic kidney disease, stage 3. 3. Essential hypertension. 4. History of hemorrhagic stroke. HOSPITAL COURSE: A 66-year-old gentleman who was admitted with nausea, vomiting, and abdominal pain. His lipase was elevated 4 times above normal. Diagnosis of pancreatitis was made, and a CAT scan was done, which did not show any acute abnormality intraabdominally. He was also found to have MATTHEW on his chronic kidney disease, stage 3. He was volume resuscitated. Supportive care was provided in terms of nausea control as well as pain control. We started the diet as tolerated and he tolerated the diet very well. We had Nephrology consultation as well regarding his chronic kidney disease. It was noted that probably the Lasix is causing the drug-induced pancreatitis in recurrent fashion. We held the Lasix on discharge and Nephrology started him on 12.5 mg of chlorthalidone b.i.d. We will have him follow up with Dr. Paige in [address] Parr in 1 week. DISCHARGE MEDICATIONS: Include, 1. Amlodipine 10 mg p.o. every day. 2. Lisinopril 40 mg p.o. every day. 3. Coreg 25 mg p.o. b.i.d. 4. Zofran 4 mg sublingual every 6 hours p.r.n. 5. Febuxostat 40 mg p.o. every day. 6. Atorvastatin 40 mg p.o. every night at bedtime. 7. New medication, chlorthalidone 12.5 mg p.o. b.i.d. PROGRESS NOTE FROM THE DAY OF THE DISCHARGE: SUBJECTIVE: Feeling fine. No nausea. No vomiting. No abdominal pain. No chest pain. No shortness of breath. No headache. OBJECTIVE: VITAL SIGNS: 113/61, 64, 98.2, 16. I and O's 5875/3850, net positive of 2022. GENERAL: No acute distress. Alert and oriented x3. HEENT: Head: Atraumatic, normocephalic. CARDIOVASCULAR: S1, S2. No murmurs, gallops, or rubs. LUNGS: Clear to auscultation bilaterally. PATIENT'S NAME: FRANKIE ROWELL [facility] AGE: 66 Y [address] ROOM: [place] [address] [facility] AD[facility] DATE: 03/30/2017 Discharge Summary DISCHARGE DATE: 04/02/2017 FAMILY PHYSICIAN: Cresencio Paige MD ATTENDING PHYSICIAN: Eduardo Muller ABDOMEN: Soft, nontender, nondistended. Bowel sounds present. EXTREMITIES: No clubbing, cyanosis, or edema. Hemoglobin on discharge 11.8, which was done on 03/31. Creatinine 1.7 on 04/02, which came down from 4.1. BUN 22, potassium 4.1, chloride 113. HEMODYNAMICS ON DISCHARGE: Stable. ACTIVITY: As tolerated. DIET: As tolerated. MD RAMSEY WEAVER/milady /[id number] d: 04/03/17 0204 t: 04/05/17 1323, DISCHARGE SUMMARY
--- NOTE | ~2017-03-30 | ER ---
PATIENT'S NAME: FRANKIE ROWELL [facility] AGE: 66 Y [address] ROOM: [id number] [place], [place] [id number] [facility] ADMIT DATE: 03/30/2017 ER/Outpatient Report DISCHARGE DATE: FAMILY PHYSICIAN: EFRAÍN RANDALL MD ATTENDING PHYSICIAN: MARY LUNA CHIEF COMPLAINT: Abdominal pain, nausea, and vomiting. HISTORY OF PRESENT ILLNESS: The patient has been having upset stomach for the last several weeks however, since of last week, it has been getting worse, and since Thursday, it has been particularly bothersome. Today, the pain has been sharp in the lower abdomen and he has been having a lot of hiccups. He states that it is worse after eating. He last ate around noon today. He denies any other issues or change in bowel or bladder habits. He had a normal bowel movement yesterday. He is not really done anything for this specifically. Symptoms seemed to have started and have been progressive since his hemorrhagic stroke on February 12. He was seen yesterday in the emergency department for some dizziness and discharged. He does have a history of chronic renal failure. PAST MEDICAL HISTORY: Notable for hemorrhagic stroke, chronic renal failure, hypertension, and gout. PAST SURGICAL HISTORY: Notable for appendectomy, hernia repair, and tonsillectomy. ALLERGIES AND MEDICATIONS: Documented on the record. REVIEW OF SYSTEMS: All systems are reviewed and negative except as noted in the HPI. PHYSICAL EXAMINATION: VITAL SIGNS: Blood pressure 125/75, pulse is 80, respiratory rate 18, temp 98.0, and SpO2 is 96% on room air. Pain is 5/10. GENERAL: Age-appropriate male. No obvious pain or distress. Resting comfortably on the exam chair. NEUROLOGIC: Awake and alert. GCS 15. No focal deficits. No asymmetry. HEENT: Normocephalic, atraumatic. Eyes are PERRL. Oropharynx is clear. NECK: Supple. Trachea is midline. CHEST/HEART: Regular rate and rhythm with no murmurs. LUNGS: Clear to auscultation bilateral. No rhonchi, wheezes, or rales. ABDOMEN: Soft, diffusely tender with some very mild guarding, voluntary. No masses. No rebound. [facility] AGE: 66 Y [address] ROOM: [address] [place], [place] [id number] [facility]: [facility] ADMIT DATE: 03/30/2017 ER/Outpatient Report DISCHARGE DATE: FAMILY PHYSICIAN: EFRAÍN RANDALL MD ATTENDING PHYSICIAN: MARY LUNA BACK: Normal to inspection and palpation. EXTREMITIES: Warm and well-perfused. SKIN: Clean, dry, and intact. LABS AND X-RAYS: Abdominal CT without abnormality, acutely per Radiology, plain abdominal films with no other acute findings. Labs: CBC without appreciable abnormality, INR is appropriate, ESR is elevated at 37. CMS sodium 132, down from 137 yesterday, BUN is 62, up from 41 yesterday, creatinine 4.1, up from 2.6, GFR is 15, down from 25. No abnormalities of bilirubin, AST, or ALT. Amylase and lipase 149 and 1916 respectively. Troponin is below threshold. GGT is 33. CRP is 1.08. EKG with a sinus rhythm, rate of 70 with normal intervals and axis. No signs of acute ischemia. Lactate is 1.4. IMPRESSION: 1. Acute pancreatitis. 2. Azotemia with likely acute kidney injury. 3. Abdominal pain. EMERGENCY DEPARTMENT COURSE: The patient was seen and evaluated as above. Based on labs, imaging was obtained. No evidence of necrosis at this time. The patient with known baseline chronic kidney disease, but significantly worsening creatinine and GFR within the last 24 hours. The patient was given bolus fluids. He did not have any recurrent pain. He will need to be n.p.o. for several hours. He was admitted to the Hospitalist Service for further evaluation and treatment. All questions were answered and the patient was admitted without further issue to Dr. Luna. MD BRIEN LAIRD/milady /[id number] d: 03/31/[id number] t: 03/31/174, OUTPATIENT REPORT
[~2017-03-30 21:10] MED LIST changes: -HYGROTON25 MG PO; -IMODIUM2 MG PO; -PEPCID20 MG PO
[2017-03-30 21:53] LABS: BASOPHIL % 0.2 %; EOSINOPHIL % 0.2 %; HEMOGLOBIN 13.5 g/dL (11.0-16.0); IMMATURE GRANULOCYTE # 0.1 K/uL (0.0-0.3); IMMATURE GRANULOCYTE % 0.5 %; LYMPHOCYTE # 1.5 K/uL (0.8-4.0); LYMPHOCYTE % 15.8 %; MCH 29.9 pg (27.0-34.0); MCHC 34.6 gm/dL (32.0-36.5); MCV 86.5 fl (83.0-98.0); MONOCYTE % 10.5 %; MPV 8.9 fl (9.4-12.4); NEUTROPHIL # (ANC) 6.7 K/uL (1.4-9.0); NEUTROPHIL % 72.8 %; NRBC % 0 /100WBC (0-0.00); PLATELET COUNT 419 K/uL (150-450); RBC 4.51 M/uL (3.50-5.50); RDW-CV 11.9 % (11.9-14.6); WBC 9.2 K/uL (4.0-11.0)
[2017-03-30 22:05] LABS: INR - (THERAPEUTIC) 1.05 (0.92-1.07); PTT 28 SECONDS (25-32)
[2017-03-30 22:14] LABS: ALBUMIN 3.4 gm/dL (3.5-5.0); ALK PHOS 71 IU/L (33-138); ALT 31 IU/L (12-78); ANION GAP 14.1 (10.0-19.0); AST 22 IU/L (10-40); CHLORIDE 96 mMol/L (96-110); CO2 26 mMol/L (22-32); POTASSIUM 4.1 mMol/L (3.7-5.1); SODIUM 132 mMol/L (135-145); TOTAL PROTEIN 7.1 g/dL (6.0-8.4)
[2017-03-30 22:15] LABS: BLOOD UREA NITROGEN 62 mg/dL (6-24); CREATININE 4.1 mg/dL (0.6-1.3); ESTIMATED GFR (MDRD EQUATION) 15; TOTAL BILIRUBIN 0.5 mg/dL (0.0-1.5)
--- NOTE | 2017-03-31 01:15 | NUR ---
Patient brought to the ER by nils for N/V and severe abdominal pain. Patient stated that he was in the ER on Thursday with a syncopal episode, a head CT was completed and was negative. Once in the ER patient had no complaints of pain. CT abdomen/pelvis negative. IV fluids restarted on PCU. Renal consult in the AM, for MATTHEW/Chronic kidney disease. Allergies: Prednisone causes vomiting
[2017-03-31 03:59] LABS: BILIRUBIN URINE NEGATIVE (NEGATIVE); BLOOD URINE NEGATIVE /UL (NEGATIVE); COLOR URINE YELLOW (YELLOW); GLUCOSE URINE 100 mg/dL (NEGATIVE); KETONE URINE NEGATIVE (NEGATIVE); LEUKOCYTES URINE NEGATIVE /UL (NEGATIVE); NITRITE URINE NEGATIVE (NEGATIVE); PH URINE 6.5 (4.0-8.0); PROTEIN URINE NEGATIVE (NEGATIVE); TURBIDITY URINE CLEAR (CLEAR); UROBILINOGEN URINE NORMAL (NORMAL)
--- NOTE | 2017-03-31 05:24 | NUR ---
Significant Event:A/Ox3. VSS on RA. New IV placed to R)FA infusing NS at 200ml/hr, call MD for orders once this liter is finished. Voiding per urinal, refused joshi placement. Good urine output at 1300ml. No c/o pain, N/V. Consult placed to for f/u appointment. Transfers SBA. Follow up:Continue to monitor.
[2017-03-31 08:23] LABS: HEMOGLOBIN 11.8 g/dL (11.0-16.0); MCHC 33.7 gm/dL (32.0-36.5); MCV 89.1 fl (83.0-98.0); MPV 8.9 fl (9.4-12.4); PLATELET COUNT 327 K/uL (150-450); RBC 3.93 M/uL (3.50-5.50); RDW-CV 12.1 % (11.9-14.6); WBC 7.2 K/uL (4.0-11.0)
[2017-03-31 08:40] LABS: CREATININE 3.2 mg/dL (0.6-1.3); POTASSIUM 4.2 mMol/L (3.7-5.1)
[2017-03-31 08:43] LABS: ANION GAP 12.2 (10.0-19.0)
[2017-03-31 08:56] LABS: ABSOLUTE NEUTROPHIL CT (ANC) 4.8 K/uL (1.4-9.0); BANDED NEUTROPHIL # 0.1 K/uL (0.0-0.1); BANDED NEUTROPHILS % 2 %; LYMPHOCYTE # 1.5 K/uL (0.8-4.0); LYMPHOCYTE % 21 %; MONOCYTE # 0.9 K/uL (0.0-1.0); SEGMENTED NEUTROPHIL # 4.7 K/uL (1.4-9.0); SEGMENTED NEUTROPHIL % 65 %
--- NOTE | 2017-03-31 16:46 | NUR ---
Significant Event: pt had u/s abd done today. Pt tried oatmeal and this afternoon has had vomit and abd.pain. Zofran, morphine and reglan given. Amylase ok. Creat 3.2. Pt voids well. IV still at 200ml/hr. PVCs noted. Pt back to clear liquids. Standby to bathroom, shower this am. Follow up:
[2017-04-01 04:29] LABS: ALBUMIN 2.9 gm/dL (3.5-5.0); CREATININE 2.2 mg/dL (0.6-1.3); TOTAL BILIRUBIN 0.4 mg/dL (0.0-1.5); TOTAL PROTEIN 5.8 g/dL (6.0-8.4)
--- NOTE | 2017-04-01 05:24 | NUR ---
Significant Event:A/Ox3. Very sleepy and withdrawn this shift. No c/o pain just not feeling like himself. VSS but BP are all over the board. 171/91 - 93/54 - 126/73. Patient voiding per urinal with no difficulties. No BM noted this shift, still needing a C-Diff sample. IVF continue at 200ml/h. Creat 2.2 this morning (patient baseline 2.0) Follow up:Continue with POC, control BP.
--- NOTE | 2017-04-01 16:00 | NUR ---
Introduced self and role of care management to patient. He lives alone in [place]. He plans home when ready for discharge and hopes it will be tomorrow. He says he has a girlfriend in [place] who will check on him. He denies discharge needs at this time. Will follow.
--- NOTE | 2017-04-01 17:34 | NUR ---
Significant Event: RESTS IN CHAIR, DENIES PAIN OR NEEDS. Follow up: HOME IN AM
[2017-04-02 04:23] LABS: ALBUMIN 2.7 gm/dL (3.5-5.0); ANION GAP 10.1 (10.0-19.0); CALCIUM 7.8 mg/dL (8.5-10.5); CREATININE 1.7 mg/dL (0.6-1.3); PHOSPHORUS 2.6 mg/dL (2.5-4.9); POTASSIUM 4.1 mMol/L (3.7-5.1)
--- NOTE | 2017-04-02 04:49 | NUR ---
Significant Event:A/Ox3. VSS on RA. SBP 140-120s. NS decreased to 75ml/h. Patient continues to have great UOP. Creat 1.7 this AM. No c/o nausea or pain. Tolerated full liquid diet, will advance for today. Follow up:Discharge medications on chart for MD. Patient will not have a ride until shift change d/t no ride until after work hours.
[2017-04-02] MEDS ORDERED: HYGROTON25 MG PO (11:13)
--- NOTE | 2017-04-02 15:31 | NUR ---
Significant Event: IVF dcd. Pt hands edematous this am but better afternoon. Pt eats some breakfast and lunch mild small meals and no pain/nausea yet. Pt c/o some acid reflux, dr told pt can do otc acid med. Pt showers this am. In recliner most day. Pt fiance to get pt tonight. Follow up:
--- NOTE | 2017-04-02 15:45 | NUR ---
Spoke with patient and he is going home today. Says his girlfriend will come after work and take him home. Denies discharge needs at this time. Will follow.
--- NOTE | 2017-04-02 17:53 | NUR ---
d- ord pt dc i-nurse did teaching on new med with info given, pt told to check bp/pulse so does not get low, pt states understanding, iv dcd intact, pt upset dr wrote diet as claudia, nurse explained i would go over pancreatitis with him and diet rec. still upset but did listen, and info printed for him all about pancreas. r-pt said thank you and had no questions, no pain/nausea p-ta took pt to [email or web address] per w/c
[2017-06-24] MEDS ORDERED: PEPCID20 MG PO (08:14)
[2017-06-24] MEDS ORDERED: IMODIUM2 MG PO (08:16)
== END 2017-04-02 17:30 | disposition disaster alternative care site (69) | DRG 439 ==
LOC: GMED 21:10 → GPCU 23:11
PROVIDERS: Emergency Medicine; Internal Medicine; Nurse Practitioner Family; ADMIT Internal Medicine
DX: K85.30 Drug induced acute pancreatitis without necrosis or infection (principal); N17.9 Acute kidney failure, unspecified; T50.1X5A Adverse effect of loop [high-ceiling] diuretics, initial encounter; I12.9 Hypertensive chronic kidney disease with stage 1 through stage 4 chronic kidney disease, or unspecified chronic kidney disease; R74.8 Abnormal levels of other serum enzymes; N18.3 Chronic kidney disease, stage 3 (moderate); Z86.73 Personal history of transient ischemic attack (TIA), and cerebral infarction without residual deficits
CPT/HCPCS: G0480; J1644; J2270; J2405; J2765; J7030

== ENCOUNTER → 2017-07-01 | Day surgery (SDC) | payer MEDICARE, OTHER ==
[~2017-07-01] VITALS: Ht 180.3 cm; Wt 82.9 kg
[~2017-07-01] MED LIST changes: +HYGROTON25 MG PO; +IMODIUM2 MG PO; +PEPCID20 MG PO
== END | disposition disaster alternative care site (69) ==
LOC: GPOC 06-24 09:00 → GEND 07:32
PROC: 0DBH8ZX Excision of Cecum, Via Natural or Artificial Opening Endoscopic, Diagnostic (ICD-10-PCS; principal; 2017-07-01)
PROC: 0DBL8ZX Excision of Transverse Colon, Via Natural or Artificial Opening Endoscopic, Diagnostic (ICD-10-PCS; 2017-07-01)
PROC: 0DBF8ZX Excision of Right Large Intestine, Via Natural or Artificial Opening Endoscopic, Diagnostic (ICD-10-PCS; 2017-07-01)
PROC: 0DBG8ZX Excision of Left Large Intestine, Via Natural or Artificial Opening Endoscopic, Diagnostic (ICD-10-PCS; 2017-07-01)
DX: D12.0 Benign neoplasm of cecum (principal); D12.3 Benign neoplasm of transverse colon; K57.30 Diverticulosis of large intestine without perforation or abscess without bleeding; K64.8 Other hemorrhoids; I12.9 Hypertensive chronic kidney disease with stage 1 through stage 4 chronic kidney disease, or unspecified chronic kidney disease; N18.4 Chronic kidney disease, stage 4 (severe); E78.5 Hyperlipidemia, unspecified; I67.4 Hypertensive encephalopathy; I71.4 Abdominal aortic aneurysm, without rupture; Z87.440 Personal history of urinary (tract) infections; Z87.891 Personal history of nicotine dependence; Z88.8 Allergy status to other drugs, medicaments and biological substances; Z79.899 Other long term (current) drug therapy; Z98.890 Other specified postprocedural states
CPT/HCPCS: J2001; J7030